=== PATIENT | male | born 1985 | race Caucasian/White ===

== ENCOUNTER 2020-09-02 08:44 | Emergency (ER) | payer OTHER ==
[~2020-09-02] VITALS: Wt 68.0 kg
== END 2020-09-02 09:24 | disposition left against medical advice (07) ==
LOC: ED 08:44
DX: F19.10 Other psychoactive substance abuse, uncomplicated (principal); Z53.21 Procedure and treatment not carried out due to patient leaving prior to being seen by health care provider